=== PATIENT | female | born 1970 | race Caucasian/White ===

== ENCOUNTER 2018-07-10 12:50 | Inpatient (IN) | payer MEDICAID ==
[~2018-07-10] VITALS: Ht 167.6 cm; Wt 58.1 kg
[2018-07-10] VITALS (36 sets, daily range): BP systolic 37–148; BP diastolic 20–100
[2018-07-10] MEDS ORDERED: NALOXONE PREFILLED SYRINGE 2 MG/2 ML SYRINGE ONE ×2 (12:57)
[2018-07-10] MEDS ORDERED: SUCCINYLCHOLINE CHLORIDE 20 MG/ML VIAL IV ONE (13:30)
[2018-07-10] MEDS ORDERED: IV NS 0.9% 1,000 ML BAG IV ONE ×2 (13:30→14:00)
[2018-07-10] MEDS ORDERED: ETOMIDATE 2 MG/ML VIAL IV ONE (13:30)
[2018-07-10] MEDS ORDERED: CEFTRIAXONE 1GM BAG (ER ONLY) 50 ML IV ONE (13:30)
[2018-07-10] MEDS ORDERED: VANCOMYCIN 1 GM in IV D5W 250 ML IV ONE (13:30)
[2018-07-10 13:31] LABS: ABG BASE EXCESS -34.1 mmol/L; ABG OXYGEN SATURATION 99.5 % (92.0-98.5); ABG PCO2 39.7 mmHg (35.0-45.0); ABG PH 6.652 (7.350-7.450); ABG PO2 542.3 mmHg (75.0-100.0); COHb 0.3 % (0.5-1.5); MetHb 1.1 % (0.0-1.5); O2Hb 98.1 % (94.0-97.0); PEEP,BG 5 cm H2O; SITE, ABG Left Femoral; VT, ABG 450 mL
[2018-07-10 13:32] LABS: BASOPHILS # (AUTO) 1.2 /CMM (0.0-0.2); BASOPHILS % (AUTO) 1.4 % (0.0-2.0); EOSINOPHILS % (AUTO) 1.1 % (0.0-6.0); HEMATOCRIT 57 % (33-45); HEMOGLOBIN 18.3 g/dL (11.5-14.8); LYMPHOCYTES # (AUTO) 14.3 /CMM (0.8-4.8); LYMPHOCYTES % (AUTO) 16.2 % (20.0-44.0); MEAN CORPUSCULAR HEMOGLOBIN 28 PG (26.0-33.0); MEAN CORPUSCULAR HGB CONC 32 g/dl (31.0-36.0); MEAN CORPUSCULAR VOLUME 87 fL (82-100); MONOCYTES # (AUTO) 3.5 /CMM (0.1-1.30); NEUTROPHILS # (AUTO) 68.1 /CMM (1.8-8.9); NEUTROPHILS % (AUTO) 77.3 % (43.0-81.0); RDW COEFFICIENT OF VARIATION 14.6 (11.5-15.0); RED BLOOD CELL COUNT(AUTO) 6.51 MIL/uL (4.0-5.2)
--- NOTE | 2018-07-10 13:36 | NUR ---
RT NOTE PT ARRIVED FROM PARAMEDICS, INTUBATED PT WITH A 7.0 ETT, 20CM AT THE LIP, PT PLACED ON NOTED SETTINGS, FOLLOWED UP ABG DONE, DR STEVENS AWARE, AMBUBAG AT BEDSIDE, WILL CONTINUE TO MONITOR CLOSELY.
[2018-07-10 13:41] LABS: PLATELET COUNT (AUTO) 48 /CMM (150-450); WHITE BLOOD COUNT (AUTO) 88.1 K/uL (4.3-11.0)
[2018-07-10 13:45] LABS: INR 2.39 (0.85-1.15)
--- NOTE | 2018-07-10 13:45 | NUR ---
RT NOTE DUE TO ABG RESULTS VENT CHANGES WERE MADE, WILL MONITOR CLOSELY
[2018-07-10] MEDS ORDERED: CEFTRIAXONE 500 MG VIAL ONE (13:48)
[2018-07-10 13:59] LABS: CHLORIDE 95 mmol/L (98-107); POTASSIUM 4.8 mmol/L (3.5-5.1); SODIUM SERUM 129 mmol/L (136-145); TROPONIN I 0.671 ng/mL (0.00-0.056)
[2018-07-10 14:00] LABS: BILIRUBIN,DIRECT 0.3 mg/dL (0.0-0.2); BILIRUBIN,TOTAL 1.5 mg/dL (0.2-1.0); CARBON DIOXIDE 8 mmol/L (21-32); CREATININE 3.6 mg/dL (0.6-1.3); GLUCOSE 76 mg/dL (74-106); UREA NITROGEN, BLOOD 33 mg/dL (7-18)
[2018-07-10 14:01] LABS: ALANINE AMINOTRANSFERASE 246 U/L (12-78); ALBUMIN 1.6 g/dL (3.4-5.0); ALKALINE PHOSPHATASE 87 U/L (46-116); ASPARTATE AMINOTRANSFERASE 515 U/L (15-37); TOTAL PROTEIN, SERUM 4.5 g/dL (6.4-8.2)
[2018-07-10] MEDS ORDERED: IV NS 0.9% 1,000 ML IV PRN (14:09)
[2018-07-10] MEDS ORDERED: LORAZEPAM INJ 2 MG/ML VIAL ONE (14:24)
--- NOTE | 2018-07-10 14:25 | NUR ---
ADMIT TO ICU RM 254
[2018-07-10 14:26] LABS: APPEARANCE,URINE Clear (CLEAR); BILIRUBIN,URINE MODERATE (NEGATIVE); BLOOD, URINE Small Ery/uL (NEGATIVE); KETONES,URINE Trace (NEGATIVE); LEUKOCYTE ESTERASE ,URINE Negative (NEGATIVE); NITRITE, URINE Positive (NEGATIVE); PROTEIN,URINE 30 mg/dl (NEGATIVE); UGLUCOSE Negative (NEGATIVE); UROBILINOGEN,URINE 0.2 EU/dL (0.2)
[2018-07-10] MEDS ORDERED: PROPOFOL 100 ML ONE (14:27)
[2018-07-10 14:30] LABS: COLOR,URINE AMBER (YELLOW)
[2018-07-10] MEDS ORDERED: ZOLPIDEM TARTRATE 5 MG TABLET PO PRN (14:30)
[2018-07-10] MEDS ORDERED: LORAZEPAM INJ 20 MG in IV NS 0.9% 90 ML IV PRN (14:30)
[2018-07-10] MEDS ORDERED: PROPOFOL 100 ML IV PRN ×2 (14:30→17:00)
[2018-07-10] MEDS ORDERED: MAG HYDROX/AL HYDROX/SIMETH 30 ML UDC PO PRN (14:30)
[2018-07-10] MEDS ORDERED: ACETAMINOPHEN 325 MG TABLET PO PRN (14:30)
[2018-07-10] MEDS ORDERED: ONDANSETRON HCL/PF 4 MG/2 ML VIAL IVP PRN (14:30)
[2018-07-10] MEDS ORDERED: Z GUARD REMEDY 2 OZ OINT TP PRN ×2 (14:30→18:30)
[2018-07-10] MEDS ORDERED: HYDROCODONE/APAP 5/325MG 1 EACH TABLET PO PRN (14:30)
[2018-07-10] MEDS ORDERED: MAGNESIUM HYDROXIDE 30 ML UDC PO PRN (14:30)
--- NOTE | 2018-07-10 14:30 | NUR ---
Prepared to go to CT w/RN and RT pt started to move arms and legs. Dr Ugalde notified w/orders for sedation
[2018-07-10 14:32] LABS: BACTERIA,URINE Few /HPF (None Seen); MUCUS,URINE Few /LPF (None Seen); SQUAMOUS EPITHELIAL CELL,UR Moderate /HPF (None Seen)
[2018-07-10 15:08] LABS: BAND % (MANUAL) 4 % (0.0-5.0); LYMPHOCYTES % (MANUAL) 18 % (16-48); MONOCYTES % (MANUAL) 6 % (0-11.0); NEUTROPHILS % (MANUAL) 72 (42-76)
[2018-07-10] MEDS ORDERED: FEE PK DOSING 1 MIN EA MC ONE (15:12)
[2018-07-10] MEDS ORDERED: PANTOPRAZOLE 40 MG VIAL IV SCH (15:30)
[2018-07-10] MEDS ORDERED: LORAZEPAM INJ 2 MG/ML VIAL IVP ONE (15:30)
--- NOTE | 2018-07-10 15:47 | NUR ---
Pt going to ICU 254 [facility] w/RN Eloy. Sedated. Diprivan at 5mcg/kg. transported to room witn RN/RT and EMT
[2018-07-10] MEDS ORDERED: SODIUM BICARBONATE SYR 50 MEQ/50 ML DISP.SYRIN IV ONE ×4 (16:00→22:00)
[2018-07-10] MEDS ORDERED: NOREPINEPHRINE 8 MG in IV D5W 500 ML IV PRN (16:00)
[2018-07-10] MEDS: Sodium Bicarbonate 150 MEQ in IV D5W 1,000 ML IV PRN ×2 (16:20→23:48)
[2018-07-10] MEDS ORDERED: PIPERACILLIN /TAZOBACTAM 3.375 G in IV D5W 50 ML IV SCH (16:30)
--- NOTE | 2018-07-10 17:30 | NUR ---
RN NOTE 1600: Admitted patient from ER via stretcher. With ETT to vent, sedated. No respiratory distress noted at this time. Skin assessment done, noted with Right buttock discoloration with minimal dark discharge. Turned off Diprivan, finishing second bag of 1L NS bolus. Dr. العراقي in the unit, with order of 2 amps Bicarb push and start on Levo and Bicarb 3amps drip @ 150 then ABG follow up. Applied TRAINING ASSOCIATE restraints for safety. Singh cath intact, noted with orange colored urine. Noted with temp 92.2, will apply clark hugger. ordered PICC insertion. 1700: PICC inserted ISABEL. 1715: Made Dr. Sibley aware for the LA 16.4 and Trop 1.49, wit order of ASA [address] Nguyen. 1730: Followed up with Dr. Nguyen for Trop per Dr. Sibley, awaiting echo.
[2018-07-10] MEDS ORDERED: ASPIRIN 325 MG TABLET GT ONE (18:00)
--- NOTE | 2018-07-10 19:00 | NUR ---
HEARING CARE PRACTITIONER NOTE RECEIVED PT INTUBATED AND SEDATED. ETT 7.5 AND 28CM AT THE LIP. [facility] WITH SETTINGS WELL TOLERATED. IV L LOWER EXTREMITY IO, ISABEL PICC TLC, R EJ #20 ALL PATENT. NG TUBE R NARE PATENT AND NO RESIDUALS NOTED. SODIUM BICARB IN D5W INFUSING AT 150ML/HR. LEVO SINGLE CONCENTRATION INFUSING @20MCG/MIN. AWAITING NEW ORDER OF DOUBLE CONCENTRATION OF LEVO. CHISHOLM CATHETER IN PLACE AND DRAINING BY GRAVITY. GEOFFREY HUGGER IN PLACE. BILATERAL SOFT WRIST RESTRAINTS IN PLACE AND SECURED TO THE BED. WILL CONTINUE TO MONITOR.
--- NOTE | 2018-07-10 19:00 | NUR ---
PT RECEIVED ORALLY INTUBATED 7.5 ETT AT 23CM AT THE LIP LINE ON THE VENT WITH NOTED SETTINGS. PT IS NOT ALERT AND DOES NOT RESPONDS TO STIMULI. VENT ALARMS ARE SET AND AUDIBLE WITH AMBU BAG @ BEDSIDE. PIPE SMOKING MACHINE OFFBEARER CUFF PRESSURE NOTED. VENT IS PLUGGED INTO RED OUTLET. SX'D SMALL AMOUNT OF PETERSON SECRETIONS. NO RESPIRATORY DISTRESS AT THIS TIME. LOW BLOOD PRESSURE NOTED. ABG DONE @ 2118. FOLLOW UP ABG AFTER 4HRS. WILL CONTINUE TO MONITOR THE PT.
[2018-07-10] MEDS: NOREPINEPHRINE 16 MG in IV D5W 500 ML IV PRN ×2 (19:18→19:25)
[2018-07-10] MEDS ORDERED: PHENYLEPHRINE 80 MG in IV D5W 250 ML IV PRN (20:30)
[2018-07-10] MEDS: PHENYLEPHRINE 80 MG in IV D5W 250 ML IV PRN (20:46)
--- NOTE | 2018-07-10 20:50 | NUR ---
RN NOTES NOTIFIED DR MARCANO THAT RT HAD DIFFICULTY OBTAINING ABG FROM RADIAL AND BRACHIAL ARTERIES. OBTAINED ORDER TO USE FEMORAL ARTERY FOR ABG
[2018-07-10] MEDS ORDERED: PIPERACILLIN /TAZOBACTAM 2.25 G in IV D5W 50 ML IV SCH ×4 (21:00)
[2018-07-10] MEDS ORDERED: METRONIDAZOLE 500MG/ NS 100ML 500 MG in PREMIX 1 EA IV SCH (21:00)
[2018-07-10 21:25] LABS: ABG BASE EXCESS -31.9 mmol/L; ABG OXYGEN SATURATION 98.4 % (92.0-98.5); ABG PCO2 13.3 mmHg (35.0-45.0); ABG PH 6.805 (7.350-7.450); ABG PO2 257.8 mmHg (75.0-100.0); AaDO2 83.7 mmHg; COHb 0.1 % (0.5-1.5); MetHb 1.1 % (0.0-1.5); O2Hb 97.2 % (94.0-97.0); PEEP,BG 0 cm H2O; SITE, ABG Left Femoral; VT, ABG 550 mL
--- NOTE | 2018-07-10 21:34 | NUR ---
RN NOTES NOTIFIED DR KENNY OF CURRENT ABG RESULTS. PER MD, GIVE 2 AMPS BICARB NOW, REPEAT ABG AFTER 4HRS. IF pH IS < 7.15, GIVE ANOTHER 3 AMPS BICARB
[2018-07-10] MEDS ORDERED: SODIUM BICARBONATE SYR 50 MEQ/50 ML DISP.SYRIN IV PRN ×2 (22:00)
[2018-07-10] MEDS ORDERED: DOPamine 400MG/D5W 250ML RTU 250 ML IV ONE (23:20)
[2018-07-10] MEDS: DOPamine 400 MG in IV D5W 250 ML IV PRN (23:32)
[2018-07-11] VITALS: BP 0/0
--- NOTE | 2018-07-11 | NUR ---
PUBLIC RELATIONS NOTE BILATERAL SOFT WRIST RESTRAINTS REMOVED DUE TO OFF SEDATION AND UNRESPONSIVE. ALL SAFETY MEASURES IN PLACE.
[2018-07-11] MEDS: PHENYLEPHRINE 80 MG in IV D5W 250 ML IV PRN ×2 (00:22→04:05)
[2018-07-11 00:33] VITALS: BP 54/38
[2018-07-11] MEDS: NOREPINEPHRINE 16 MG in IV D5W 500 ML IV PRN (01:21)
[2018-07-11] MEDS ORDERED: DEXTROSE 50%-WATER 50 ML DISP.SYRIN IV PRN ×2 (01:30)
[2018-07-11] MEDS ORDERED: IV NS 0.9% 500 ML IV ONE ×2 (01:30→02:30)
[2018-07-11] MEDS ORDERED: INSULIN REGULAR, HUMAN 100 UNIT/ML 3 ML VIAL SQ PRN ×2 (01:30)
--- NOTE | 2018-07-11 01:30 | NUR ---
SPORT PSYCHOLOGIST NOTE PT ON LEVO, YONATHAN AND DOPAMINE MAXED OUT WITHOUT ANY BP READING AND HR IN THE 90'S. INFORMED GAGE MAKER DR MARCANO WITH ORDERS TO BOLUS WITH 500ML OF NS X1 NOW. ORDERS NOTED AND CARRIED OUT. WILL MONITOR.
[2018-07-11 02:01] VITALS: BP 44/20
[2018-07-11] MEDS ORDERED: IV NS 0.9% 500 ML IV STA (02:05)
[2018-07-11 02:24] VITALS: BP 48/19
--- NOTE | 2018-07-11 02:31 | NUR ---
PROJECT MANAGER INTERIOR DESIGN NOTE PT NEEDING FREQUENT ORAL SUCTION AND NOTED WITH BLACK SECRETIONS FROM MOUTH. ON ASPIRATION PRECAUTIONS. SPOKE WITH DR. MARCANO WITH ORDERS TO BOLUS ANOTHER BAG OF NS 500ML X1 NOW. ORDERS NOTED AND CARRIED OUT.
[2018-07-11 02:38] LABS: BASOPHILS # (AUTO) 0.1 /CMM (0.0-0.2); BASOPHILS % (AUTO) 0.1 % (0.0-2.0); EOSINOPHILS % (AUTO) 1.1 % (0.0-6.0); HEMATOCRIT 47 % (33-45); HEMOGLOBIN 13.8 g/dL (11.5-14.8); LYMPHOCYTES # (AUTO) 15.3 /CMM (0.8-4.8); LYMPHOCYTES % (AUTO) 16.5 % (20.0-44.0); MEAN CORPUSCULAR HEMOGLOBIN 26 PG (26.0-33.0); MEAN CORPUSCULAR HGB CONC 29 g/dl (31.0-36.0); MEAN CORPUSCULAR VOLUME 89 fL (82-100); MONOCYTES # (AUTO) 2.7 /CMM (0.1-1.30); MONOCYTES % (AUTO) 2.9 % (2.0-12.0); NEUTROPHILS # (AUTO) 73.7 /CMM (1.8-8.9); NEUTROPHILS % (AUTO) 79.4 % (43.0-81.0); PLATELET COUNT (AUTO) 69 /CMM (150-450); RDW COEFFICIENT OF VARIATION 15.4 (11.5-15.0); RED BLOOD CELL COUNT(AUTO) 5.29 MIL/uL (4.0-5.2)
[2018-07-11 02:40] LABS: ABG BASE EXCESS -31.5 mmol/L; ABG OXYGEN SATURATION 98.4 % (92.0-98.5); ABG PCO2 19.1 mmHg (35.0-45.0); ABG PH 6.777 (7.350-7.450); ABG PO2 233.6 mmHg (75.0-100.0); AaDO2 101.4 mmHg; COHb 0.3 % (0.5-1.5); O2Hb 97.1 % (94.0-97.0); PEEP,BG 0 cm H2O; SITE, ABG Left Femoral; VT, ABG 550 mL
[2018-07-11] MEDS ORDERED: SODIUM BICARBONATE 5 ML VIAL ONE (02:45)
[2018-07-11] MEDS ORDERED: SODIUM BICARBONATE SYR 50 MEQ/50 ML DISP.SYRIN ONE ×2 (02:47→02:50)
[2018-07-11 02:49] LABS: WHITE BLOOD COUNT (AUTO) 92.8 K/uL (4.3-11.0)
--- NOTE | 2018-07-11 02:56 | NUR ---
CROWN ATTACHER NOTE RECEIVED CRITICAL VALUE WBC 92.8. LEFT MESSAGE TO DR. MARCANO. RECEIVED ABG AND INFORMED DR MARCANO WITH NO NEW ORDER. WILL CONTINUE TO MONITOR.
[2018-07-11] MEDS ORDERED: DOPamine 400MG/D5W 250ML RTU 250 ML IV ONE (03:11)
[2018-07-11] MEDS: DOPamine 400 MG in IV D5W 250 ML IV PRN (03:13)
[2018-07-11 03:29] LABS: TROPONIN I 7.611 ng/mL (0.00-0.056)
[2018-07-11 03:36] LABS: BILIRUBIN,DIRECT 0.6 mg/dL (0.0-0.2)
[2018-07-11 03:37] LABS: BILIRUBIN,TOTAL 1.3 mg/dL (0.2-1.0); TOTAL PROTEIN, SERUM 1.8 g/dL (6.4-8.2)
[2018-07-11 03:42] LABS: ALBUMIN 0.5 g/dL (3.4-5.0)
[2018-07-11 03:51] LABS: BAND % (MANUAL) 22 % (0.0-5.0); EOSINOPHILS % (MANUAL) 1 % (0-4); LYMPHOCYTES % (MANUAL) 27 % (16-48); METAMYELOCYTES % 1 % (0-0); MYELOCYTES % 1 % (0-0); NEUTROPHILS % (MANUAL) 45 (42-76); PROMYELOCYTES % 2 % (0-0); REACTIVE LYMPHOCYTES 1 % (0-0)
[2018-07-11 04:03] LABS: CARBON DIOXIDE 8 mmol/L (21-32); CHLORIDE 92 mmol/L (98-107); POTASSIUM 5.8 mmol/L (3.5-5.1); SODIUM SERUM 128 mmol/L (136-145)
[2018-07-11 04:04] LABS: ALKALINE PHOSPHATASE 168 U/L (46-116); BILIRUBIN,TOTAL 1.3 mg/dL (0.2-1.0)
[2018-07-11 04:05] LABS: GLUCOSE 367 mg/dL (74-106); MAGNESIUM 2.3 mg/dL (1.8-2.4)
[2018-07-11 04:06] LABS: ALBUMIN 0.5 g/dL (3.4-5.0); CALCIUM, SERUM 5.7 mg/dL (8.5-10.1); CREATININE 3.8 mg/dL (0.6-1.3); UREA NITROGEN, BLOOD 33 mg/dL (7-18)
[2018-07-11 04:07] LABS: PHOSPHORUS 30.7 mg/dL (2.5-4.9)
[2018-07-11 04:09] LABS: ALANINE AMINOTRANSFERASE 507 U/L (12-78); TOTAL PROTEIN, SERUM 1.8 g/dL (6.4-8.2)
[2018-07-11 04:10] LABS: ASPARTATE AMINOTRANSFERASE < 0 U/L (15-37)
--- NOTE | 2018-07-11 04:28 | NUR ---
PORCELAIN WAXER NOTE PT MAX OUT ON 3 PRESSORS LEVO, YONATHAN, AND DOPAMINE. UNABLE TO OBTAIN BP FOR SEVERAL HOURS. HEART RATE STARTED DECLINING FROM 90'S TO 60'S. UNABLE TO OBTAIN/ DETECT A PULSE VIA DOPPLER . PT HAD PEA AND CODE BLUE CALLED AT 0417 ACLS INITIATED. ED PRONOUNCED PT AT 0428.
[2018-07-11 04:47] LABS: INR > 10.00 (0.87-1.13)
[2018-07-11 04:50] LABS: PARTIAL THROMBOPLASTIN TIME > 170 SEC (23-34)
--- NOTE | 2018-07-11 05:06 | NUR ---
CLOTHING AND TEXTILES TEACHER NOTE 0428- INFORMED NURSING ANALYTICAL STRATEGIST THAT PT . 0434- CALLED ON SITE NURSE SPOKE WITH KAYLENE. ON SITE NURSE # [phone]. CALLED ADMITTING AND SPOKE WITH ISAIAS INFORMING THAT PT . 0435- INFORMED INTERNATIONAL ACCOUNT EXECUTIVE DR. MARCANO THAT PT . 0449- CALLED [facility] SPOKE WITH DORITA WITH REFERENCE #[id number] 0500- CALLED BOYFRIEND SABRINA AND LEFT MESSAGE PHONE NUMBER [phone]
[2018-07-11] MEDS ORDERED: FEE EMEERGENCY 1 MIN EA MC ONE (05:30)
[2018-07-11] MEDS ORDERED: ETOMIDATE 2 MG/ML VIAL IV ONE (05:30)
[2018-07-11] MEDS ORDERED: EPINEPHRINE (1:10,000) SYRINGE 1 MG/10 ML DISP.SYRIN IVP ONE (05:30)
[2018-07-11] MEDS ORDERED: BLOOD SUGAR DIAGNOSTIC 1 EACH STRIP IN SCH ×2 (06:00)
--- NOTE | 2018-07-11 06:00 | NUR ---
DECK MATE NOTE CALLED AND LEFT MESSAGE TO CHASEFRIENEssence BENNETT ([phone]) WITH THE HOSPITAL NUMBER AND EXTENSION TO NURSING FOUNDER PRESIDENT AND CEO FOR HIM TO CALL FOR ANY INFORMATION AND TO HAVE QUESTIONS ANSWERED.
[2018-07-11] MEDS ORDERED: CEFTRIAXONE 1 G in IV D5W 50 ML IV SCH (14:00)
[2018-07-12] MEDS ORDERED: VANCOMYCIN 0.75 GM in IV D5W 250 ML IV SCH (02:00)
== END 2018-07-11 05:31 | disposition expired | DRG 812 ==
LOC: ER 12:53 → ICU 14:31 → EDBD 14:31
PROVIDERS: ADMIT Student in an Organized Health Care Education/Training Program; ATTEND Student in an Organized Health Care Education/Training Program
PROC: 02HV33Z Insertion of Infusion Device into Superior Vena Cava, Percutaneous Approach (ICD-10-PCS; principal; 2018-07-10)
PROC: 5A1935Z Respiratory Ventilation, Less than 24 Consecutive Hours (ICD-10-PCS; principal; 2018-07-10)
PROC: B548ZZA Ultrasonography of Superior Vena Cava, Guidance (ICD-10-PCS; principal; 2018-07-10)
PROC: 0BH18EZ Insertion of Endotracheal Airway into Trachea, Via Natural or Artificial Opening Endoscopic (ICD-10-PCS; principal; 2018-07-10)
PROC: 5A12012 Performance of Cardiac Output, Single, Manual (ICD-10-PCS; 2018-07-11)
DX: T43.621A Poisoning by amphetamines, accidental (unintentional), initial encounter (principal); J96.01 Acute respiratory failure with hypoxia; I21.A1 Myocardial infarction type 2; D65 Disseminated intravascular coagulation [defibrination syndrome]; A41.9 Sepsis, unspecified organism; E43 Unspecified severe protein-calorie malnutrition; K72.00 Acute and subacute hepatic failure without coma; G93.40 Encephalopathy, unspecified; E87.4 Mixed disorder of acid-base balance; K80.00 Calculus of gallbladder with acute cholecystitis without obstruction; E87.1 Hypo-osmolality and hyponatremia; N17.0 Acute kidney failure with tubular necrosis; R65.21 Severe sepsis with septic shock; N39.0 Urinary tract infection, site not specified; R74.0 Nonspecific elevation of levels of transaminase and lactic acid dehydrogenase [LDH]; T40.2X1A Poisoning by other opioids, accidental (unintentional), initial encounter; Y92.89 Other specified places as the place of occurrence of the external cause; E88.09 Other disorders of plasma-protein metabolism, not elsewhere classified; Z68.20 Body mass index [BMI] 20.0-20.9, adult; D72.823 Leukemoid reaction; K76.0 Fatty (change of) liver, not elsewhere classified; J18.9 Pneumonia, unspecified organism; L02.415 Cutaneous abscess of right lower limb; S70.01XA Contusion of right hip, initial encounter; X58.XXXA Exposure to other specified factors, initial encounter; Y93.9 Activity, unspecified
CPT/HCPCS: 31720; 36415; 36600; 70450-TC; 71045-TC; 76700-TC; 80048-TC; 80053-TC; 80076-TC; 80305; 81000-TC; 82803-TC; 82962-TC; 83605-TC; 83690-TC; 83735-TC; 83880; 84100-TC; 84146; 84484-TC; 85025-TC; 85730-TC; 87040-TC; 87081-TC; 87086-TC; 87806; 94002-TC; 94003-TC; A4216; A4606; C1751; C9113; G0480; J0171; J0696; J1265; J1815; J2060; J2310; J2370; J2543; J3370; J3490; J7030; J7040; J7050; J7060; J7070; Z7610